=== PATIENT | female | born 1985 | race Caucasian/White ===

== ENCOUNTER 2018-06-23 16:22 | Emergency (ER) | payer OTHER ==
[2018-06-23] MEDS ORDERED: cloNIDine HCL 0.1 MG TAB PO STA (16:48)
[2018-06-23] MEDS ORDERED: ONDANSETRON ODT 8 MG TAB.RAPDIS PO STA (16:48)
[2018-06-23] MEDS ORDERED: diphenhydrAMINE 50 MG/ML 1 ML VIAL IVP STA ×2 (17:02→18:43)
[2018-06-23] MEDS ORDERED: ONDANSETRON 4 MG/2 ML VIAL IVP STA ×2 (17:02→20:51)
[2018-06-23] MEDS ORDERED: METOCLOPRAMIDE 5 MG/ML 2 ML VIAL IVP STA (17:02)
[2018-06-23] MEDS ORDERED: SODIUM CHLORIDE 0.9% 1,000 ML IV STA (17:02)
[2018-06-23] MEDS ORDERED: PANTOPRAZOLE 40 MG/10 ML VIAL IVP STA (17:02)
[2018-06-23] MEDS ORDERED: SODIUM CHLORIDE 0.9% 500 ML 500 ML IV STA (17:02)
[2018-06-23] MEDS ORDERED: LORazepam 2 MG/ML INJ IV STA ×2 (17:04→18:43)
--- NOTE | 2018-06-23 17:07 | ED ---
Nausea/Vomiting/Diarrhea HPI - General Chief complaint: Nausea/Vomiting/Diarrhea Stated complaint: Abd Pain Time Seen by Provider: 06/23/18 16:43 Source: patient, RN notes reviewed, old records reviewed Mode of arrival: EMS Limitations: no limitations - History of Present Illness Initial comments: This is a 33-year-old female to ER from [place], patient has persistent nausea vomiting and diarrhea, no significant history of similar symptoms. Patient is been going through rehabilitation for about 9 days now. Patient started significant abdominal pain with nausea vomiting and diarrhea today. Persistent nausea currently MD complaint: nausea, vomiting, abdominal pain -: hour(s) Description of Vomiting: food contents, bilious Associated Abdominal Pain: Yes Location: diffuse Radiation: none Severity: severe Severity scale (1-10): 8 Quality: cramping, stabbing, aching Consistency: constant Improves with: eating, medication Worsens with: vomiting Context: alcohol abuse (Multiple drug abuse) Associated Symptoms: denies other symptoms - Related Data Home Medications Medication Instructions Recorded Confirmed Acetaminophen [Tylenol 8 Hour] 650 mg PO Q4H PRN 06/23/18 06/23/18 Calcium/Magnesium 1 tab PO TID PRN 06/23/18 06/23/18 Chlorpheniramine Maleate 4 mg PO Q4H PRN 06/23/18 06/23/18 [Chlor-Trimeton] Ibuprofen [Motrin] 600 mg PO Q6H PRN 06/23/18 06/23/18 Mirtazapine [Remeron] 15 mg PO HS 06/23/18 06/23/18 Multivitamins, Thera [Multivitamin 1 tab PO DAILY 06/23/18 06/23/18 (formulary)] Ondansetron HCl [Zofran Oral Soln] 4 mg PO Q6H PRN 06/23/18 06/23/18 Ondansetron HCl [Zofran] 8 mg PO Q6H PRN 06/23/18 06/23/18 Thiamine [Vitamin B-1] 100 mg PO DAILY 06/23/18 06/23/18 busPIRone HCl [Buspar] 10 mg PO TID PRN 06/23/18 06/23/18 cloNIDine HCL [Catapres] 0.1 mg PO Q4H PRN 06/23/18 06/23/18 traZODone HCL [Desyrel] 50 - 150 mg PO HS 06/23/18 06/23/18 Previous Rx's Medication Instructions Recorded Ondansetron Odt [Zofran ODT] 4 mg PO Q8HR PRN #10 tab 06/23/18 Allergies Allergy/AdvReac Type Severity Reaction Status Date / Time morphine Allergy Unknown Verified 06/23/18 16:31 Review of Systems ROS Statement: Those systems with pertinent positive or pertinent negative responses have been documented in the HPI. ROS Other: All systems not noted in ROS Statement are negative. Past Medical History Additional Past Medical History / Comment(s): Hep C History of Any Multi-Drug Resistant Organisms: C-DIFF, MRSA Date of last positivie culture/infection: Apr 20 Past Surgical History: No Surgical Hx Reported Past Psychological History: Anxiety, Depression Smoking Status: Current every day smoker Past Alcohol Use History: None Reported Past Drug Use History: Heroin, Opiates General Exam Limitations: no limitations General appearance: alert, in no apparent distress Head exam: Present: atraumatic, normocephalic, normal inspection Eye exam: Present: normal appearance, PERRL, EOMI. Absent: scleral icterus, conjunctival injection, periorbital swelling ENT exam: Present: normal exam, mucous membranes moist Neck exam: Present: normal inspection. Absent: tenderness, meningismus, lymphadenopathy Respiratory exam: Present: normal lung sounds bilaterally. Absent: respiratory distress, wheezes, rales, rhonchi, stridor Cardiovascular Exam: Present: regular rate, normal rhythm, normal heart sounds. Absent: systolic murmur, diastolic murmur, rubs, gallop, clicks GI/Abdominal exam: Present: soft, normal bowel sounds. Absent: distended, tenderness, guarding, rebound, rigid Extremities exam: Present: normal inspection, full ROM, normal capillary refill. Absent: tenderness, pedal edema, joint swelling, calf tenderness Back exam: Present: normal inspection Neurological exam: Present: alert, oriented X3, CN II-XII intact Psychiatric exam: Present: normal affect, normal mood Skin exam: Present: warm, dry, intact, normal color. Absent: rash Course Vital Signs 06/23/18 06/23/18 06/23/18 16:27 17:00 18:35 Temperature 98.5 F Pulse Rate 86 90 80 Respiratory 18 18 18 Rate Blood Pressure 119/88 119/88 131/92 O2 Sat by Pulse 98 98 98 Oximetry 06/23/18 06/23/18 06/23/18 19:00 19:30 21:24 Temperature 97.3 F L Pulse Rate 83 Respiratory 16 Rate Blood Pressure 131/92 143/90 O2 Sat by Pulse 100 100 100 Oximetry - Reevaluation(s) Reevaluation #1: 06/23/18 18:54 Medical record is reviewed Reevaluation #2: 06/23/18 18:54 Nausea and symptoms are improved Medical Decision Making - Medical Decision Making 43 female the ER for nausea vomiting likely drug withdrawal. Symptoms improved here in the ER lab work and x-rays are negative. Patient can be discharged home - Lab Data Result diagrams: 06/23/18 16:40 06/23/18 16:40 Lab Results 06/23/18 06/23/18 06/23/18 Range/Units 16:40 16:40 16:40 WBC 14.3 H (3.8-10.6) k/uL RBC 5.13 (3.80-5.40) m/uL Hgb 13.6 (11.4-16.0) gm/dL Hct 42.3 (34.0-46.0) % MCV 82.6 (80.0-100.0) fL MCH 26.5 (25.0-35.0) pg MCHC 32.1 (31.0-37.0) g/dL RDW 14.7 (11.5-15.5) % Plt Count 195 (150-450) k/uL Neutrophils % 87 % Lymphocytes % 9 % Monocytes % 3 % Eosinophils % 0 % Basophils % 1 % Neutrophils # 12.4 H (1.3-7.7) k/uL Lymphocytes # 1.3 (1.0-4.8) k/uL Monocytes # 0.4 (0-1.0) k/uL Eosinophils # 0.0 (0-0.7) k/uL Basophils # 0.1 (0-0.2) k/uL Sodium 142 (137-145) mmol/L Potassium 4.3 (3.5-5.1) mmol/L Chloride 110 H (98-107) mmol/L Carbon Dioxide 20 L (22-30) mmol/L Anion Gap 12 mmol/L BUN 14 (7-17) mg/dL Creatinine 0.65 (0.52-1.04) mg/dL Est GFR (CKD-EPI)AfAm >90 (>60 ml/min/1.73 sqM) Est GFR (CKD-EPI)NonAf >90 (>60 ml/min/1.73 sqM) Glucose 116 H (74-99) mg/dL Calcium 9.8 (8.4-10.2) mg/dL Total Bilirubin 0.7 (0.2-1.3) mg/dL AST 47 H (14-36) U/L ALT 79 H (9-52) U/L Alkaline Phosphatase 59 (38-126) U/L Total Creatine Kinase 45 (30-135) U/L CK-MB (CK-2) 0.5 (0.0-2.4) ng/mL CK-MB (CK-2) Rel Index 1.1 Total Protein 8.1 (6.3-8.2) g/dL Albumin 4.8 (3.5-5.0) g/dL Lipase 174 (23-300) U/L Urine Color Urine Appearance (Clear) Urine pH (5.0-8.0) Ur Specific Shirley (1.001-1.035) Urine Protein (Negative) Urine Glucose (UA) (Negative) Urine Ketones (Negative) Urine Blood (Negative) Urine Nitrite (Negative) Urine Bilirubin (Negative) Urine Urobilinogen (<2.0) mg/dL Ur Leukocyte Esterase (Negative) Urine WBC (0-5) /hpf Ur Squamous Epith Cells (0-4) /hpf Urine Bacteria (None) /hpf Urine Mucus (None) /hpf Urine HCG, Qual (Not Detectd) Salicylates <1.0 mg/dL Urine Opiates Screen (NotDetected) Ur Oxycodone Screen (NotDetected) Urine Methadone Screen (NotDetected) Ur Propoxyphene Screen (NotDetected) Acetaminophen <10.0 ug/mL Ur Barbiturates Screen (NotDetected) U Tricyclic Antidepress (NotDetected) Ur Phencyclidine Scrn (NotDetected) Ur Amphetamines Screen (NotDetected) U Methamphetamines Scrn (NotDetected) U Benzodiazepines Scrn (NotDetected) Urine Cocaine Screen (NotDetected) U Marijuana (THC) Screen (NotDetected) Serum Alcohol <10 mg/dL 06/23/18 06/23/18 Range/Units 16:40 16:40 WBC (3.8-10.6) k/uL RBC (3.80-5.40) m/uL Hgb (11.4-16.0) gm/dL Hct (34.0-46.0) % MCV (80.0-100.0) fL MCH (25.0-35.0) pg MCHC (31.0-37.0) g/dL RDW (11.5-15.5) % Plt Count (150-450) k/uL Neutrophils % % Lymphocytes % % Monocytes % % Eosinophils % % Basophils % % Neutrophils # (1.3-7.7) k/uL Lymphocytes # (1.0-4.8) k/uL Monocytes # (0-1.0) k/uL Eosinophils # (0-0.7) k/uL Basophils # (0-0.2) k/uL Sodium (137-145) mmol/L Potassium (3.5-5.1) mmol/L Chloride (98-107) mmol/L Carbon Dioxide (22-30) mmol/L Anion Gap mmol/L BUN (7-17) mg/dL Creatinine (0.52-1.04) mg/dL Est GFR (CKD-EPI)AfAm (>60 ml/min/1.73 sqM) Est GFR (CKD-EPI)NonAf (>60 ml/min/1.73 sqM) Glucose (74-99) mg/dL Calcium (8.4-10.2) mg/dL Total Bilirubin (0.2-1.3) mg/dL AST (14-36) U/L ALT (9-52) U/L Alkaline Phosphatase (38-126) U/L Total Creatine Kinase (30-135) U/L CK-MB (CK-2) (0.0-2.4) ng/mL CK-MB (CK-2) Rel Index Total Protein (6.3-8.2) g/dL Albumin (3.5-5.0) g/dL Lipase (23-300) U/L Urine Color Yellow Urine Appearance Turbid H (Clear) Urine pH 5.5 (5.0-8.0) Ur Specific Shirley 1.023 (1.001-1.035) Urine Protein 1+ H (Negative) Urine Glucose (UA) Negative (Negative) Urine Ketones Trace H (Negative) Urine Blood Negative (Negative) Urine Nitrite Negative (Negative) Urine Bilirubin Negative (Negative) Urine Urobilinogen <2.0 (<2.0) mg/dL Ur Leukocyte Esterase Negative (Negative) Urine WBC 10 H (0-5) /hpf Ur Squamous Epith Cells 5 H (0-4) /hpf Urine Bacteria Occasional H (None) /hpf Urine Mucus Many H (None) /hpf Urine HCG, Qual Not Detected (Not Detectd) Salicylates mg/dL Urine Opiates Screen Not Detected (NotDetected) Ur Oxycodone Screen Not Detected (NotDetected) Urine Methadone Screen Not Detected (NotDetected) Ur Propoxyphene Screen Not Detected (NotDetected) Acetaminophen ug/mL Ur Barbiturates Screen Not Detected (NotDetected) U Tricyclic Antidepress Not Detected (NotDetected) Ur Phencyclidine Scrn Not Detected (NotDetected) Ur Amphetamines Screen Detected H (NotDetected) U Methamphetamines Scrn Detected H (NotDetected) U Benzodiazepines Scrn Not Detected (NotDetected) Urine Cocaine Screen Not Detected (NotDetected) U Marijuana (THC) Screen Detected H (NotDetected) Serum Alcohol mg/dL - EKG Data -: EKG Interpreted by Me (AG shows normal sinus rhythm rate of 95, NJ 1:30, QRS 80, QTC 485) EKG shows normal: sinus rhythm Rate: normal - Radiology Data Radiology results: report reviewed (X-ray negative for acute disease), image reviewed Disposition Clinical Impression: Nausea & vomiting Disposition: HOME SELF-CARE Condition: Good Instructions: Acute Nausea and Vomiting (ED) Prescriptions: Ondansetron Odt [Zofran ODT] 4 mg PO Q8HR PRN #10 tab PRN Reason: nausea/vomiting Is patient prescribed a controlled substance at d/c from ED?: No Referrals: Jose L Guerra MD [Primary Care Provider] - 1-2 days
[2018-06-23 17:28] LABS: Basophils # (A) 0.1 k/uL (0-0.2); Basophils % (A) 1 %; Eosinophils % (A) 0 %; HCT 42.3 % (34.0-46.0); HGB 13.6 gm/dL (11.4-16.0); Lymphocytes # (A) 1.3 k/uL (1.0-4.8); Lymphocytes % (A) 9 %; MCH 26.5 pg (25.0-35.0); MCHC 32.1 g/dL (31.0-37.0); MCV 82.6 fL (80.0-100.0); Mean Platelet Volume 8.1; Monocytes # (A) 0.4 k/uL (0-1.0); Monocytes % (A) 3 %; Neutrophils # (A) 12.4 k/uL (1.3-7.7); Neutrophils % (A) 87 %; Platelet Count 195 k/uL (150-450); RBC 5.13 m/uL (3.80-5.40); RDW 14.7 % (11.5-15.5); WBC 14.3 k/uL (3.8-10.6)
[2018-06-23 17:34] LABS: Appearance,Urine Turbid (Clear); Bacteria,Urine Occasional /hpf; Bilirubin,Urine Negative (Negative); Blood,Urine Negative (Negative); Color,Urine Yellow; Glucose,Urine (UA) Negative (Negative); Ketones,Urine Trace (Negative); Leukocyte Esterase,Urine Negative (Negative); Mucus,Urine Many /hpf; Nitrite,Urine Negative (Negative); PH, Urine 5.5 (5.0-8.0); Protein,Urine 1+ (Negative); Specific Gravity,Urine 1.023 (1.001-1.035); Squamous Epithelial Cell,Urine 5 /hpf (0-4); Urobilinogen,Urine <2.0 mg/dL (<2.0); WBC,Urine 10 /hpf (0-5)
[2018-06-23 17:41] LABS: Amphetamine Screen,Urine Detected (NotDetected); Barbiturate Screen,Urine Not Detected (NotDetected); Benzodiazepines Screen,Urine Not Detected (NotDetected); Cocaine Screen,Urine Not Detected (NotDetected); Methadone Screen, Urine Not Detected (NotDetected); Opiate Screen,Urine Not Detected (NotDetected); Oxycodone Screen, Urine Not Detected (NotDetected); Phencyclidine Screen,Urine Not Detected (NotDetected); Tricyclic Antidepressant,Urine Not Detected (NotDetected); Urn Cannabinoid Scrn Detected (NotDetected)
[2018-06-23 17:47] LABS: Acetaminophen <10.0 ug/mL; Albumin 4.8 g/dL (3.5-5.0); Alcohol <10 mg/dL; Anion Gap 12 mmol/L; Blood Urea Nitrogen 14 mg/dL (7-17); Calcium 9.8 mg/dL (8.4-10.2); Carbon Dioxide 20 mmol/L (22-30); Chloride 110 mmol/L (98-107); Glucose 116 mg/dL (74-99); Lipase 174 U/L (23-300); Salicylate <1.0 mg/dL; Sodium 142 mmol/L (137-145); Total Bilirubin 0.7 mg/dL (0.2-1.3); Total Protein 8.1 g/dL (6.3-8.2)
[2018-06-23 17:54] LABS: Creatine Kinase MB 0.5 ng/mL (0.0-2.4)
[2018-06-23 17:55] LABS: ALT 79 U/L (9-52); AST 47 U/L (14-36); Alkaline Phosphatase 59 U/L (38-126); Potassium 4.3 mmol/L (3.5-5.1)
--- NOTE | 2018-06-23 19:43 | XR ---
EXAMINATION TYPE: XR abdomen acute w cxr DATE OF EXAM: 06/23/2018 COMPARISON: NONE HISTORY: 33-year-old female pain, nausea and vomiting TECHNIQUE: Supine, upright, and left side down lateral decubitus views of the abdomen are obtained. FINDINGS: Frontal view of the chest was normal heart size, aorta, and pulmonary vascularity. Nodularity of the right base corresponds to nipple shadow. No consolidation or pleural effusion. There is no evidence for pneumoperitoneum. The bowel gas pattern is unremarkable as there is air throughout nondilated small and large bowel. M ild scattered stool. No sizeable air fluid levels. Phleboliths in the pelvis. IMPRESSION: 1. No acute cardiopulmonary process. 2. No evidence for free air or bowel obstruction.
[2018-06-23] MEDS ORDERED: DIAZEPAM 5 MG/ML 2 ML INJ IVP STA (20:51)
[2018-06-23 21:25] VITALS: BP 143/90; PULSE 83; RESP 16; TEMP 97.3
== END 2018-06-23 21:26 | disposition home or self-care (01) ==
LOC: EC 16:22
DX: R11.2 Nausea with vomiting, unspecified (principal); R19.7 Diarrhea, unspecified; R10.84 Generalized abdominal pain; F10.10 Alcohol abuse, uncomplicated; F11.10 Opioid abuse, uncomplicated; F19.10 Other psychoactive substance abuse, uncomplicated; F32.9 Major depressive disorder, single episode, unspecified; F41.9 Anxiety disorder, unspecified; F17.200 Nicotine dependence, unspecified, uncomplicated; Z88.5 Allergy status to narcotic agent; Z79.899 Other long term (current) drug therapy; Z86.14 Personal history of Methicillin resistant Staphylococcus aureus infection; Z53.20 Procedure and treatment not carried out because of patient's decision for unspecified reasons
CPT/HCPCS: 99285; 96374; 96375 ×5; 96376 ×2; 96361; 36415; 93005; 80053; 82550; 82553; 83690; 85025; 81001; 81025; 80306; 83520 ×2; 74022; G0480; J2060; J1200; J2765; J3360; J2405; C9113; 80320

== ENCOUNTER 2024-12-28 17:30 | Emergency (ER) | payer OTHER ==
[2024-12-28 17:37] VITALS: TEMP 98.2
--- NOTE | 2024-12-28 17:56 | ED ---
General Adult HPI - General Chief complaint: Nausea/Vomiting/Diarrhea Stated complaint: N/V(24 weeks preg) Time Seen by Provider: 12/28/24 17:34 Source: patient, RN notes reviewed Mode of arrival: EMS Limitations: no limitations - History of Present Illness Initial comments: Patient is a 39-year-old female present to the emergency department with concer ns for nausea vomiting. Patient started using fentanyl again around 3 weeks ago. Patient went to rehab Monday and is being switched to methadone. Patient believes she may not be getting a high enough dose and that is why she is having nausea and vomiting. No abdominal pain or vaginal bleeding. However patient is 24 weeks . Patient does have an OB and has had previous ultrasound. Patient is vomiting 2 or 3 times per day. Patient states she is mostly here for fluids. - Related Data Home Medications Medication Instructions Recorded Confirmed Acetaminophen [Tylenol 8 Hour] 650 mg PO Q4H PRN 06/23/18 06/23/18 Calcium/Magnesium 1 tab PO TID PRN 06/23/18 06/23/18 Chlorpheniramine Maleate 4 mg PO Q4H PRN 06/23/18 06/23/18 [Chlor-Trimeton] Ibuprofen [Motrin] 600 mg PO Q6H PRN 06/23/18 06/23/18 Mirtazapine [Remeron] 15 mg PO HS 06/23/18 06/23/18 Multivitamins, Thera [Multivitamin 1 tab PO DAILY 06/23/18 06/23/18 (formulary)] Thiamine [Vitamin B-1] 100 mg PO DAILY 06/23/18 06/23/18 busPIRone HCl [Buspar] 10 mg PO TID PRN 06/23/18 06/23/18 cloNIDine HCL [Catapres] 0.1 mg PO Q4H PRN 06/23/18 06/23/18 ondansetron HCL [Zofran Oral Soln] 4 mg PO Q6H PRN 06/23/18 06/23/18 ondansetron HCL [Zofran] 8 mg PO Q6H PRN 06/23/18 06/23/18 traZODone HCL [Desyrel] 50 - 150 mg PO HS 06/23/18 06/23/18 Previous Rx's Medication Instructions Recorded Ondansetron Odt [Zofran ODT] 4 mg PO Q8HR PRN #10 tab 06/23/18 Allergies Allergy/AdvReac Type Severity Reaction Status Date / Time morphine Allergy Unknown Verified 06/23/18 16:31 vancomycin Allergy Anaphylaxis Verified 12/28/24 17:37 Review of Systems ROS Statement: Those systems with pertinent positive or pertinent negative responses have been documented in the HPI. ROS Other: All systems not noted in ROS Statement are negative. Constitutional: Denies: fever Eyes: Denies: eye pain ENT: Denies: ear pain Respiratory: Denies: dyspnea Cardiovascular: Denies: chest pain Gastrointestinal: Reports: as per HPI, nausea, vomiting Past Medical History Additional Past Medical History / Comment(s): Hep C History of Any Multi-Drug Resistant Organisms: C-DIFF, MRSA Date of last positivie culture/infection: Apr 20 Past Surgical History: No Surgical Hx Reported Past Psychological History: Anxiety, Depression Past Alcohol Use History: None Reported Past Drug Use History: Heroin, Opiates General Exam Limitations: no limitations General appearance: alert, in no apparent distress Head exam: Present: normocephalic Eye exam: Present: normal appearance Neck exam: Present: normal inspection Respiratory exam: Present: normal lung sounds bilaterally Cardiovascular Exam: Present: regular rate, normal rhythm GI/Abdominal exam: Present: soft. Absent: tenderness Extremities exam: Present: normal inspection Neurological exam: Present: alert Psychiatric exam: Present: normal affect, normal mood Skin exam: Present: normal color Course Vital Signs 12/28/24 17:33 Temperature 98.2 F Pulse Rate 70 Respiratory 18 Rate Blood Pressure 123/89 O2 Sat by Pulse 100 Oximetry Medical Decision Making - Medical Decision Making Was pt. sent in by a medical professional or institution (, PA, RUG WEAVER, urgent care, hospital, or skilled nursing...) When possible be specific @ -Patient was sent from [facility] Did you speak to anyone other than the patient for history (EMS, parent, family, police, friend...)? What history was obtained from this source @ -No Did you review nursing and triage notes (agree or disagree)? Why? @ -I reviewed and agree with nursing and triage notes Were old charts reviewed (outside hosp., previous admission, EMS record, old EKG, old radiological studies, urgent care reports/EKG's, skilled nursing records)? Report findings @ -Chart reviewed from [facility] Differential Diagnosis (chest pain, altered mental status, abdominal pain women, abdominal pain men, vaginal bleeding, weakness, fever, dyspnea, syncope, headache, dizziness, GI bleed, back pain, seizure, CVA, palpatations, mental health, musculoskeletal)? @ -Differential Abdominal Pain Women: Appendicitis, Cholecystitis, diverticulosis, ischemic bowel, pancreatitis, hepatitis, UTI, gastroenteritis, AAA, incarcerated hernia, bowel obstruction, constipation, inflammatory bowel, hepatitis, peptic ulcer disease, splenic infarction, perforated viscus, vulvitis, ovarian torsion, PID, kidney stone, placenta abruption, this is not meant to be an all-inclusive list EKG interpreted by me (3pts min.). @ -As above X-rays interpreted by me (1pt min.). @ -None done CT interpreted by me (1pt min.). @ -None done U/S interpreted by me (1pt. min.). @ -None done What testing was considered but not performed or refused? (CT, X-rays, U/S, labs)? Why? @ -None What meds were considered but not given or refused? Why? @ -None Did you discuss the management of the patient with other professionals (professionals i.e. , PA, RUG WEAVER, lab, RT, psych nurse, health and social care teacher, home health lvn, teacher, armor officer, case advocate)? Give summary @ -No Was smoking cessation discussed for >3mins.? @ -No Was critical care preformed (if so, how long)? @ -No Were there social determinants of health that impacted care today? How? (Homelessness, low income, unemployed, alcoholism, drug addiction, transportation, low edu. Level, literacy, decrease access to med. care, halfway, rehab)? @ -No Was there de-escalation of care discussed even if they declined (Discuss DNR or withdrawal of care, Hospice)? DNR status @ -No What co-morbidities impacted this encounter? (DM, HTN, Smoking, COPD, CAD, Canc er, CVA, ARF, Chemo, Hep., AIDS, mental health diagnosis, sleep apnea, morbid obesity)? @ -None Was patient admitted / discharged? Hospital course, mention meds given and route, prescriptions, significant lab abnormalities, going to OR and other pertinent info. @ -Patient presents from [facility] with nausea and vomiting. Evaluation unremarkable. Patient reevaluated and feeling better tolerating oral intake. Patient states she has had concerns for bacterial vaginosis which she has had previously secondary to some mild discharge and request medication for this. Patient will be sent to [facility] floor for monitoring and then discharged back to [facility]. Patient is comfortable with this and does demonstrate understanding Undiagnosed new problem with uncertain prognosis? @ -No Drug Therapy requiring intensive monitoring for toxicity (Heparin, Nitro, Insulin, Cardizem)? @ -No Were any procedures done? @ -No Diagnosis/symptom? @ -Vomiting Acute, or Chronic, or Acute on Chronic? @ -Acute Uncomplicated (without systemic symptoms) or Complicated (systemic symptoms)? @ -Default Side effects of treatment? @ -No Exacerbation, Progression, or Severe Exacerbation? @ -No Poses a threat to life or bodily function? How? (Chest pain, [place], [place], pneumonia, PE, COPD, DKA, ARF, appy, cholecystitis, CVA, Diverticulitis, Homicidal, Suicidal, threat to staff... and all critical care pts) @ -No - Lab Data Result diagrams: 12/28/24 18:10 12/28/24 18:10 Lab Results 12/28/24 12/28/24 Range/Units 18:10 18:10 WBC 11.67 H (4.50-10.00) 10*3/uL RBC 4.28 (4.10-5.20) 10*6/uL Hgb 13.0 (12.0-15.0) g/dL Hct 37.1 L (37.2-46.3) % MCV 86.7 (80.0-97.0) fL MCH 30.4 (27.0-32.0) pg MCHC 35.0 (32.0-37.0) g/dL Plt Count 249 (140-440) 10*3/uL MPV 10.5 (9.5-12.2) fL Immature Gran % (Auto) 0.4 % Neutrophils % 72.9 % Lymphocytes % 19.5 % Monocytes % 5.3 % Eosinophils % 0.9 % Basophils % 1.0 % Immature Gran # 0.05 H (0.00-0.04) 10*3/uL Neutrophils # 8.51 H (1.80-7.70) 10*3/uL Lymphocytes # 2.27 (0.90-5.00) 10*3/uL Monocytes # 0.62 (0.20-1.00) 10*3/uL Eosinophils # 0.10 (0.04-0.35) 10*3/uL Basophils # 0.12 H (0.00-0.10) 10*3/uL Sodium 134 L (137-145) mmol/L Potassium 3.9 (3.5-5.1) mmol/L Chloride 98 (98-107) mmol/L Carbon Dioxide 27 (22-30) mmol/L Anion Gap 9 mmol/L BUN 5 L (7-17) mg/dL Creatinine 0.46 L (0.52-1.04) mg/dL Est GFR (CKD-EPI)AfAm >90 (>60 ml/min/1.73 sqM) Est GFR (CKD-EPI)NonAf >90 (>60 ml/min/1.73 sqM) Glucose 75 (74-99) mg/dL Calcium 9.5 (8.4-10.2) mg/dL Total Bilirubin 1.0 (0.2-1.3) mg/dL AST 35 (14-36) U/L ALT 25 (4-34) U/L Alkaline Phosphatase 49 (38-126) U/L Total Protein 7.3 (6.3-8.2) g/dL Albumin 4.3 (3.5-5.0) g/dL HCG, Quant 60142.6 mIU/mL Disposition Clinical Impression: Vomiting Disposition: HOME SELF-CARE Condition: Stable Instructions (If sedation given, give patient instructions): Acute Nausea and Vomiting (ED) Additional Instructions: Please do follow-up with your primary care physician and [facility] in the next couple of days for recheck. Return for not tolerating fluids, pain, vaginal bleeding, worsening or changing symptoms or other concerns. Is patient prescribed a controlled substance at d/c from ED?: No Referrals: None,Stated [Primary Care Provider] - 1-2 days Ciro Feng MD [STAFF PHYSICIAN] - 1-2 days Forms: Area PCPs Time of Disposition: 19:40
[2024-12-28] MEDS: SODIUM CHLORIDE 0.9% 1,000 ML IV ONE (18:15)
[2024-12-28 18:17] LABS: Basophils # (A) 0.12 10*3/uL (0.00-0.10); Eosinophils % (A) 0.9 %; HCT 37.1 % (37.2-46.3); Lymphocytes # (A) 2.27 10*3/uL (0.90-5.00); Lymphocytes % (A) 19.5 %; MCH 30.4 pg (27.0-32.0); MCV 86.7 fL (80.0-97.0); Mean Platelet Volume 10.5 fL (9.5-12.2); Monocytes # (A) 0.62 10*3/uL (0.20-1.00); Monocytes % (A) 5.3 %; Neutrophils # (A) 8.51 10*3/uL (1.80-7.70); Neutrophils % (A) 72.9 %; Platelet Count 249 10*3/uL (140-440); RBC 4.28 10*6/uL (4.10-5.20); RDW 13.1 % (11.5-14.5); WBC 11.67 10*3/uL (4.50-10.00)
[2024-12-28] MEDS: SODIUM CHLORIDE 0.9% 1,000 ML IV SCH (18:17)
[2024-12-28] MEDS: ONDANSETRON 4 MG/2 ML VIAL IVP STA (18:19)
[2024-12-28] MEDS: FAMOTIDINE 20 MG/2 ML VIAL IV STA (18:20)
[2024-12-28 18:28] LABS: ALT 25 U/L (4-34); African American GFR (CKD) >90 (>60 ml/min/1.73 sqM); Albumin 4.3 g/dL (3.5-5.0); Anion Gap 9 mmol/L; Blood Urea Nitrogen 5 mg/dL (7-17); Calcium 9.5 mg/dL (8.4-10.2); Carbon Dioxide 27 mmol/L (22-30); Chloride 98 mmol/L (98-107); Glucose 75 mg/dL (74-99); Non-African American GFR(CKD) >90 (>60 ml/min/1.73 sqM); Sodium 134 mmol/L (137-145); Total Protein 7.3 g/dL (6.3-8.2)
[2024-12-28 18:44] LABS: AST 35 U/L (14-36); Potassium 3.9 mmol/L (3.5-5.1)
[2024-12-28 18:45] LABS: Alkaline Phosphatase 49 U/L (38-126)
[2024-12-28 19:11] LABS: HCG,Quantitative Serum 47844.6 mIU/mL
[2024-12-28] MEDS: metroNIDAZOLE 500 MG TAB PO STA (20:12)
[2024-12-28 20:31] VITALS: BP 124/77; PULSE 74; RESP 17
== END 2024-12-28 20:31 | disposition home or self-care (01) ==
LOC: EC 17:30
DX: O21.2 Late vomiting of pregnancy (principal); Z88.5 Allergy status to narcotic agent; Z88.1 Allergy status to other antibiotic agents; Z3A.24 24 weeks gestation of pregnancy
CPT/HCPCS: 80053; 85025; 84702; 99284; 96374; 96375; 96361 ×2; J2405; J1308; 36415